=== PATIENT | female | born 1945 | race Caucasian/White ===

== ENCOUNTER 2023-04-26 21:42 | Inpatient (IN) | payer OTHER ==
[~2023-04-26] VITALS: Ht 165.1 cm; Wt 75.3 kg
[2023-04-26 21:48] VITALS: BP 157/82; PULSE 77; RESP 20; TEMP 98; O2SAT 98
[2023-04-26] MEDS ORDERED: ASPIRIN 81 MG TAB.CHEW PO ONE (22:30)
[2023-04-26 23:04] LABS: BASOPHILS % (AUTO) 0.5 % (0.0-2.0); EOSINOPHILS % (AUTO) 0.1 % (0.0-4.0); HEMATOCRIT 32.5 % (36-48); HEMOGLOBIN 10.4 g/dL (12.0-16.0); LYMPHOCYTES % (AUTO) 9.9 % (20.5-51.1); MEAN CORPUSCULAR HEMOGLOBIN 26 pg (27-31); MEAN CORPUSCULAR HGB CONC 32 g/dL (33-37); MEAN CORPUSCULAR VOLUME 82.4 fL (80-94); MONOCYTES # (AUTO) 0.5 K/uL (0.8-1.0); MONOCYTES % (AUTO) 4.7 % (1.7-9.3); NEUTROPHILS # (AUTO) 8.4 K/uL (1.8-7.7); NEUTROPHILS % (AUTO) 84.8 % (42.2-75.2); PLATELET COUNT (AUTO) 367 K/uL (140-450); RED BLOOD CELL COUNT(AUTO) 3.94 MIL/uL (4.20-5.40); RED CELL DISTRIBUTION WIDTH 16.8 % (11.6-13.7); WHITE BLOOD COUNT (AUTO) 9.9 K/uL (4.8-10.8)
[2023-04-26 23:19] LABS: ALBUMIN 4.1 g/dL (3.4-5.0); ASPARTATE AMINOTRANSFERASE 19 U/L (15-37); CALCIUM 8.9 mg/dL (8.5-10.1); CARBON DIOXIDE 23.1 mmol/L (21-32); CHLORIDE 104 mmol/L (98-107); CREATININE 0.8 mg/dL (0.6-1.3); GLUCOSE 117 mg/dL (74-106); LIPASE 48 U/L (16-77); POTASSIUM 4.1 mmol/L (3.5-5.1); SODIUM SERUM 139 mmol/L (136-145); UREA NITROGEN, BLOOD 24 mg/dL (7-18)
[2023-04-26] MEDS ORDERED: NITROGLYCERIN 0.4 MG TAB SL ONE (23:20)
[2023-04-26] MEDS ORDERED: MORPHINE SULFATE 4 MG/ML SYR IVP ONE (23:55)
[2023-04-27 00:29] LABS: ALKALINE PHOSPHATASE 53 U/L (50-136); TOTAL BILIRUBIN 0.4 mg/dL (0.0-1.0)
[2023-04-27 00:30] LABS: ALANINE AMINOTRANSFERASE 22 U/L (12-78); TOTAL PROTEIN, SERUM 7.8 g/dL (6.4-8.2)
[2023-04-27] MEDS ORDERED: MORPHINE SULFATE 4 MG/ML SYR IVP ONE ×2 (03:05→07:15)
[2023-04-27 05:40] LABS: FLU A ANTIGEN negative (NEGATIVE); FLU B ANTIGEN NEGATIVE (NEGATIVE)
[2023-04-27] MEDS ORDERED: OMEP40EC23 PO (08:12)
[2023-04-27] MEDS ORDERED: FURO20TA8 PO (08:12)
[2023-04-27] MEDS ORDERED: ATI.5 PO (08:12)
[2023-04-27] MEDS ORDERED: APIX5TAB PO (08:12)
[2023-04-27] MEDS ORDERED: ACET-9525 PO (08:12)
[2023-04-27] MEDS ORDERED: [UNRECOGNIZED DRUG - CODE] PO (08:12)
[2023-04-27] MEDS ORDERED: AMIO200T25 PO (08:12)
[2023-04-27] MEDS ORDERED: METO25TA14 PO (08:12)
[2023-04-27] MEDS ORDERED: ESTR0.5T4 PO (08:12)
[2023-04-27] MEDS ORDERED: LOVA40TA5 PO (08:12)
[2023-04-27] MEDS ORDERED: MAG SULF 2000 MG/WATER PREMIX 50 ML IV PRN (08:15)
[2023-04-27] MEDS ORDERED: ACETAMINOPHEN 325 MG TAB PO PRN (08:15)
[2023-04-27] MEDS ORDERED: MAGNESIUM OXIDE 400 MG TAB PO PRN (08:15)
[2023-04-27] MEDS ORDERED: KCL 20 MEQ IN 100 mL PREMIX 200 ML IV PRN (08:15)
[2023-04-27] MEDS ORDERED: POTASSIUM CHLORIDE 10 MEQ TABER PO PRN (08:15)
[2023-04-27] MEDS ORDERED: HYDROcodone/APAP 5/325 MG 1 TAB TAB PO PRN (08:15)
[2023-04-27 12:10] VITALS: O2SAT 98
[2023-04-27] MEDS: MORPHINE SULFATE 4 MG/ML SYR IVP PRN ×2 (13:46→20:50)
[2023-04-27 15:30] VITALS: BP 162/69; PULSE 79; RESP 16; TEMP 96.5; O2SAT 99
[2023-04-27 16:00] VITALS: PULSE 89
[2023-04-27 20:00] VITALS: PULSE 75; PULSE 79; RESP 18; O2SAT 99
[2023-04-27 20:30] VITALS: BP 128/71; PULSE 79; RESP 18; TEMP 98.1; O2SAT 99
[2023-04-28] VITALS (11 sets, daily range): BP systolic 97–164; BP diastolic 54–89; PULSE 76–92; RESP 17–20; TEMP 98–98.5; O2SAT 96–100
[2023-04-28 06:46] LABS: BASOPHILS % (AUTO) 0.5 % (0.0-2.0); EOSINOPHILS % (AUTO) 0.1 % (0.0-4.0); HEMATOCRIT 33.4 % (36-48); HEMOGLOBIN 10.5 g/dL (12.0-16.0); LYMPHOCYTES # (AUTO) 1.7 K/uL (2.5-16.5); LYMPHOCYTES % (AUTO) 17.3 % (20.5-51.1); MEAN CORPUSCULAR HEMOGLOBIN 26 pg (27-31); MEAN CORPUSCULAR HGB CONC 32 g/dL (33-37); MEAN CORPUSCULAR VOLUME 82.4 fL (80-94); MONOCYTES # (AUTO) 1.1 K/uL (0.8-1.0); MONOCYTES % (AUTO) 11.1 % (1.7-9.3); NEUTROPHILS # (AUTO) 6.8 K/uL (1.8-7.7); PLATELET COUNT (AUTO) 354 K/uL (140-450); RED BLOOD CELL COUNT(AUTO) 4.05 MIL/uL (4.20-5.40); WHITE BLOOD COUNT (AUTO) 9.5 K/uL (4.8-10.8)
[2023-04-28 07:42] LABS: ALANINE AMINOTRANSFERASE 20 U/L (12-78); ALBUMIN 3.8 g/dL (3.4-5.0); ALKALINE PHOSPHATASE 53 U/L (50-136); ANION GAP 12.4 (8-16); ASPARTATE AMINOTRANSFERASE 21 U/L (15-37); CALCIUM 8.8 mg/dL (8.5-10.1); CARBON DIOXIDE 27.2 mmol/L (21-32); CHLORIDE 102 mmol/L (98-107); CREATININE 0.8 mg/dL (0.6-1.3); GLUCOSE 99 mg/dL (74-106); POTASSIUM 3.6 mmol/L (3.5-5.1); SODIUM SERUM 138 mmol/L (136-145); TOTAL BILIRUBIN 0.5 mg/dL (0.0-1.0); TOTAL PROTEIN, SERUM 7.4 g/dL (6.4-8.2); UREA NITROGEN, BLOOD 7 mg/dL (7-18)
[2023-04-28] MEDS ORDERED: LORazepam 0.5 MG TAB PO PRN (08:20)
[2023-04-28] MEDS ORDERED: HYDROcodone/APAP 5/325 MG 1 TAB TAB PO PRN (09:00)
[2023-04-28] MEDS: FUROSEMIDE 40 MG TAB PO SCH (10:11)
[2023-04-28] MEDS: METOPROLOL 25 MG TAB PO SCH ×2 (10:11→20:39)
[2023-04-28] MEDS: AMIODARONE 200 MG TAB PO SCH (10:11)
[2023-04-28] MEDS: ONDANSETRON 4 MG/2 ML VIAL IVP PRN (13:33)
[2023-04-28] MEDS: MORPHINE SULFATE 4 MG/ML SYR IVP PRN ×2 (13:33→17:57)
[2023-04-28] MEDS: APIXABAN 2.5 MG TAB PO SCH (20:42)
[2023-04-29] VITALS (11 sets, daily range): BP systolic 140–164; BP diastolic 72–89; PULSE 78–95; RESP 17–20; TEMP 97.6–98.5; O2SAT 99–100
[2023-04-29] MEDS: MORPHINE SULFATE 4 MG/ML SYR IVP PRN ×2 (05:14→16:21)
[2023-04-29 05:26] LABS: BASOPHILS % (AUTO) 0.3 % (0.0-2.0); HEMOGLOBIN 11.7 g/dL (12.0-16.0); LYMPHOCYTES # (AUTO) 1.2 K/uL (2.5-16.5); MEAN CORPUSCULAR HEMOGLOBIN 27 pg (27-31); MEAN CORPUSCULAR HGB CONC 33 g/dL (33-37); MEAN CORPUSCULAR VOLUME 81.9 fL (80-94); MONOCYTES # (AUTO) 1.3 K/uL (0.8-1.0); MONOCYTES % (AUTO) 12.4 % (1.7-9.3); NEUTROPHILS # (AUTO) 8.3 K/uL (1.8-7.7); NEUTROPHILS % (AUTO) 76.3 % (42.2-75.2); PLATELET COUNT (AUTO) 380 K/uL (140-450); RED BLOOD CELL COUNT(AUTO) 4.39 MIL/uL (4.20-5.40); RED CELL DISTRIBUTION WIDTH 16.6 % (11.6-13.7); WHITE BLOOD COUNT (AUTO) 10.8 K/uL (4.8-10.8)
[2023-04-29 05:44] LABS: ALANINE AMINOTRANSFERASE 24 U/L (12-78); ALBUMIN 3.6 g/dL (3.4-5.0); ALKALINE PHOSPHATASE 58 U/L (50-136); ANION GAP 12.1 (8-16); ASPARTATE AMINOTRANSFERASE 31 U/L (15-37); CALCIUM 8.9 mg/dL (8.5-10.1); CARBON DIOXIDE 29.2 mmol/L (21-32); CHLORIDE 98 mmol/L (98-107); CREATININE 0.8 mg/dL (0.6-1.3); GLUCOSE 122 mg/dL (74-106); MAGNESIUM 2.1 mg/dL (1.8-2.4); POTASSIUM 3.3 mmol/L (3.5-5.1); SODIUM SERUM 136 mmol/L (136-145); TOTAL BILIRUBIN 0.5 mg/dL (0.0-1.0); TOTAL PROTEIN, SERUM 7.9 g/dL (6.4-8.2); UREA NITROGEN, BLOOD 20 mg/dL (7-18)
[2023-04-29] MEDS: APIXABAN 2.5 MG TAB PO SCH (09:36)
[2023-04-29] MEDS: METOPROLOL 25 MG TAB PO SCH ×2 (09:37→21:54)
[2023-04-29] MEDS: AMIODARONE 200 MG TAB PO SCH (09:37)
[2023-04-29] MEDS: FUROSEMIDE 40 MG TAB PO SCH (09:38)
[2023-04-29] MEDS ORDERED: ECOTRIN 81 MG TABEC PO SCH (10:25)
[2023-04-29] MEDS ORDERED: LOVENOX 1MG/KG Q12H SUBQ SCH (10:25)
[2023-04-29] MEDS: ENOXAPARIN 80 MG/0.8 ML SYR SUBQ SCH ×3 (11:00→23:09)
[2023-04-29] MEDS: ONDANSETRON 4 MG/2 ML VIAL IVP PRN ×2 (17:20→21:28)
[2023-04-29] MEDS ORDERED: KETOROLAC 30 MG/ML VIAL IVP PRN (22:10)
[2023-04-30] MEDS ORDERED: AMIODARONE 200 MG TAB PO SCH (09:00)
[2023-04-30] MEDS ORDERED: ATORVASTATIN 20 MG TAB PO SCH (09:00)
== END 2023-04-29 23:27 | disposition short-term general hospital (02) | DRG 282 ==
LOC: MED 21:42 → MTU 04-27 08:51 → OBSVTOIN 04-27 08:52 → MTU 04-27 12:30
PROVIDERS: ADMIT Hospitalist; ATTEND Hospitalist
DX: I21.4 Non-ST elevation (NSTEMI) myocardial infarction (principal); K52.9 Noninfective gastroenteritis and colitis, unspecified; I48.91 Unspecified atrial fibrillation; E78.00 Pure hypercholesterolemia, unspecified; I10 Essential (primary) hypertension; F41.9 Anxiety disorder, unspecified; F32.A Depression, unspecified; K80.20 Calculus of gallbladder without cholecystitis without obstruction; I27.20 Pulmonary hypertension, unspecified; K57.30 Diverticulosis of large intestine without perforation or abscess without bleeding; K29.70 Gastritis, unspecified, without bleeding; D35.02 Benign neoplasm of left adrenal gland; Z20.822 Contact with and (suspected) exposure to COVID-19; Z79.01 Long term (current) use of anticoagulants; Z79.891 Long term (current) use of opiate analgesic; Z79.899 Other long term (current) drug therapy
CPT/HCPCS: 36415; 71045; 71275; 80053; 83690; 83735; 83880; 84484; 85025; 85379; 87081; 93005; 96374; 96376; 97112; 97530; 99285; J0696; J1644; J1650; J1885; J2270; J2405; J7060; Q9967